=== PATIENT | male | born 1960 | race Caucasian/White ===

== ENCOUNTER 2019-05-01 13:53 | Day surgery (SDC) | payer BC ==
[2019-05-01] MEDS ORDERED: LIDOCAINE 2% MDV (20MG/ML) 20ML VIAL IV ONE (13:54)
[2019-05-01] MEDS ORDERED: PROPOFOL 10 MG/ML VIAL IV ONE (13:54)
--- NOTE | 2019-05-02 08:10 | Operative Note ---
OPERATION: COLONOSCOPY with cold snare polypectomy x3 and biopsy. PREOPERATIVE DIAGNOSIS: Colon cancer screening. POSTOPERATIVE DIAGNOSES: 1. Ascending colon lipoma? 2. Ascending colon polyp. 3. Sigmoid colon polyps x2. 4. Sigmoid diverticulosis. PROCEDURE: After informed consent was obtained from the patient, he was placed in the left lateral decubitus position in the endoscopy suite, sedated and monitored by the department of anesthesia. Digital rectal examination revealed no palpable mass. A well-lubricated [id number] colonoscope was inserted into the rectum and advanced to the cecum. Preparation quality was good. The cecum and cecal bulb were unremarkable. The ascending colon revealed a sessile polyp approximately 5 mm in diameter removed with a cold snare. There was also a 1.1 cm submucosal lesion suspicious for a lipoma in the area of the ascending colon. Drill biopsies were obtained from the area. The remainder of the ascending colon, transverse colon, and descending colon were unremarkable. There were moderate sigmoid diverticular changes. There were also two 4 mm polyps noted each removed with a cold snare. These polyps were retrieved. The rectum was unremarkable in forward and J-turn views. The endoscope was straightened, the rectal ampulla deflated, and the endoscope was removed. RECOMMENDATIONS: The patient should follow a high-fiber diet. He will require repeat exam in 3-5 years pending tissue histology. As always, thank you for allowing me to participate in the healthcare of your patients. FRANCOIS
== END 2019-05-01 15:25 | disposition home or self-care (01) ==
LOC: HOP 13:53
PROVIDERS: ATTEND Internal Medicine Gastroenterology
DX: Z12.11 Encounter for screening for malignant neoplasm of colon (principal); D12.2 Benign neoplasm of ascending colon; D12.5 Benign neoplasm of sigmoid colon; K57.30 Diverticulosis of large intestine without perforation or abscess without bleeding